=== PATIENT | male | born 2000 | race African-American/Black ===

== ENCOUNTER 2024-05-17 14:04 | Emergency (ER) | payer BC ==
[~2024-05-17] VITALS: Ht 182.9 cm; Wt 81.6 kg
[2024-05-17 15:10] VITALS: BP 134/84; TEMP 98; O2SAT 98
== END 2024-05-17 15:10 | disposition home or self-care (01) ==
LOC: ER 14:04
DX: S61.412D Laceration without foreign body of left hand, subsequent encounter (principal); Z48.02 Encounter for removal of sutures; X58.XXXD Exposure to other specified factors, subsequent encounter
CPT/HCPCS: 73130-TC